=== PATIENT | female | born 1965 | race African-American/Black ===

== ENCOUNTER 2018-08-25 07:05 | Emergency (ER) | payer BC ==
[~2018-08-25] VITALS: Ht 157.5 cm; Wt 81.0 kg
[2018-08-25] MEDS ORDERED: IBUPROFEN 600MG TABLET PO STA (09:20)
[2018-08-25 09:54] LABS: BASOPHILS % 0.5 % (0.0-2.0); EOSINOPHILS % 1.8 % (0.0-5.0); HEMATOCRIT. 38.1 % (36.0-48.0); HEMOGLOBIN. 12.4 g/dL (12.0-16.0); LYMPHOCYTES % 30.2 % (20.0-50.0); MEAN CORPUSCULAR HEMOGLOBIN 22.4 pg (28.0-32.0); MEAN CORPUSCULAR VOLUME 68.7 fL (81.0-99.0); MEAN PLATELET VOLUME 9.2 fl (7.4-10.4); MONOCYTES % 3.6 % (2.0-8.0); NEUTROPHILS % 63.9 % (40.0-76.0); PLATELET 212 x1000/uL (130-400); RED BLOOD CELL COUNT 5.55 mill/uL (4.2-5.4); RED CELL DISTRIBUTION WIDTH 14.1 % (11.6-14.6)
[2018-08-25 10:01] LABS: CHLORIDE 106 mEq/L (98-107)
[2018-08-25 10:10] LABS: PLATELET ESTIMATE NORMAL
[2018-08-25] MEDS ORDERED: HYDROCODONE/ACETAMINOPHEN 5/325MG TABLET PO ONE (12:00)
[2018-08-25 13:14] VITALS: BP 120/77
== END 2018-08-25 13:20 | disposition home or self-care (01) ==
LOC: ER 07:05
DX: R07.89 Other chest pain (principal); Z90.710 Acquired absence of both cervix and uterus; Z90.49 Acquired absence of other specified parts of digestive tract; Z98.890 Other specified postprocedural states
CPT/HCPCS: 36415; 71045; 84484; 93005; 99284